=== PATIENT | female | born 1980 | race Two or more races ===

== ENCOUNTER 2021-02-14 17:45 | Outpatient (CLI) | payer OTHER | END 2021-02-14 17:49 | disposition home or self-care (01) | LOC: LAB 17:45 | PROVIDERS: ATTEND Radiology Diagnostic Radiology | DX: R10.84 Generalized abdominal pain (principal) ==

== ENCOUNTER 2021-02-15 07:45 | Outpatient (CLI) | payer OTHER | END 2021-02-15 07:54 | disposition home or self-care (01) | LOC: MRI 07:45 | DX: R10.84 Generalized abdominal pain (principal) | CPT/HCPCS: 72196; 74182 ==

== ENCOUNTER 2021-05-17 14:03 | Outpatient (CLI) | payer OTHER | END 2021-05-17 14:59 | disposition home or self-care (01) | LOC: TOM 14:03 | PROVIDERS: ATTEND Surgery | DX: K43.2 Incisional hernia without obstruction or gangrene (principal) ==

== ENCOUNTER 2022-01-17 07:30 | Inpatient (IN) | payer OTHER ==
[~2022-01-17 07:30] MED LIST: LIPOFEN150 MG PO; SYNTHROID150 MCG PO
[2022-01-20] MEDS ORDERED: POLY119PG PO (12:38)
[2022-01-20] MEDS ORDERED: PERCOCET 5-3251 EACH PO (12:38)
[2022-01-20] MEDS ORDERED: NEURONTIN600 M1 PO (12:38)
== END 2022-01-20 13:41 | disposition home or self-care (01) | DRG 337 ==
LOC: CIR.AMB 07:30 → SURH 21:48 → O/R 22:03 → SURG 22:16 → OB/GYN 22:45 → SURH 01-18 01:08
PROVIDERS: ADMIT Surgery; ATTEND Surgery
PROC: 0WUF0JZ Supplement Abdominal Wall with Synthetic Substitute, Open Approach (ICD-10-PCS; 2022-01-17)
PROC: 0DN80ZZ Release Small Intestine, Open Approach (ICD-10-PCS; 2022-01-17)
PROC: 0DNL0ZZ Release Transverse Colon, Open Approach (ICD-10-PCS; principal; 2022-01-17 16:45)
DX: K43.0 Incisional hernia with obstruction, without gangrene (principal); N73.6 Female pelvic peritoneal adhesions (postinfective); N99.4 Postprocedural pelvic peritoneal adhesions

== ENCOUNTER 2022-02-13 15:00 | Emergency (ER) | payer OTHER ==
[~2022-02-13] VITALS: Ht 154.9 cm; Wt 59.0 kg
[~2022-02-13 15:00] MED LIST changes: +NEURONTIN600 M1 PO; +PERCOCET 5-3251 EACH PO; +POLY119PG PO
== END 2022-02-13 18:12 | disposition home or self-care (01) ==
LOC: ER 15:00
DX: T81.31XA Disruption of external operation (surgical) wound, not elsewhere classified, initial encounter (principal)

== ENCOUNTER 2022-07-11 07:15 | Outpatient (CLI) | payer OTHER | END 2022-07-11 07:22 | disposition home or self-care (01) | LOC: TOM 07:15 | PROVIDERS: ATTEND Surgery | DX: K43.2 Incisional hernia without obstruction or gangrene (principal) ==

== ENCOUNTER 2023-02-12 10:25 | Inpatient (IN) | payer OTHER ==
[~2023-02-12] VITALS: Ht 152.4 cm; Wt 59.0 kg
[2023-02-25] MEDS ORDERED: CEPHALEXIN500 M1 PO (18:33)
[2023-02-25] MEDS ORDERED: LEVOFLOXACIN750 MG PO (18:33)
== END 2023-02-25 18:59 | disposition home or self-care (01) | DRG 570 ==
LOC: ER 10:25 → MEDJ 17:37
PROVIDERS: Specialist; ADMIT Internal Medicine; ATTEND Internal Medicine
PROC: BN25YZZ Computerized Tomography (CT Scan) of Facial Bones using Other Contrast (ICD-10-PCS; 2023-02-12)
PROC: 0JB10ZZ Excision of Face Subcutaneous Tissue and Fascia, Open Approach (ICD-10-PCS; principal; 2023-02-14 18:15)
PROC: BW21YZZ Computerized Tomography (CT Scan) of Abdomen and Pelvis using Other Contrast (ICD-10-PCS; 2023-02-17)
PROC: 0H91XZZ Drainage of Face Skin, External Approach (ICD-10-PCS; 2023-02-20)
PROC: BW24ZZZ Computerized Tomography (CT Scan) of Chest and Abdomen (ICD-10-PCS; 2023-02-20)
PROC: B24BZZZ Ultrasonography of Heart with Aorta (ICD-10-PCS; 2023-02-21)
PROC: CF241ZZ Tomographic (Tomo) Nuclear Medicine Imaging of Gallbladder using Technetium 99m (Tc-99m) (ICD-10-PCS; 2023-02-21)
DX: L03.211 Cellulitis of face (principal); J18.9 Pneumonia, unspecified organism; J90 Pleural effusion, not elsewhere classified; L02.01 Cutaneous abscess of face; N17.9 Acute kidney failure, unspecified; D64.9 Anemia, unspecified; E87.6 Hypokalemia; B95.61 Methicillin susceptible Staphylococcus aureus infection as the cause of diseases classified elsewhere; E03.9 Hypothyroidism, unspecified; R09.02 Hypoxemia; Z20.822 Contact with and (suspected) exposure to COVID-19

== ENCOUNTER 2023-08-05 09:15 | Outpatient (CLI) | payer OTHER ==
[~2023-08-05 09:15] MED LIST changes: +CEPHALEXIN500 M1 PO; +LEVOFLOXACIN750 MG PO
== END 2023-08-05 14:26 | disposition home or self-care (01) ==
LOC: TOM 09:15
DX: R06.00 Dyspnea, unspecified (principal); J44.9 Chronic obstructive pulmonary disease, unspecified; F17.200 Nicotine dependence, unspecified, uncomplicated; J98.4 Other disorders of lung

== ENCOUNTER 2023-11-30 09:52 | Emergency (ER) | payer OTHER ==
[~2023-11-30] VITALS: Ht 160 cm; Wt 54.4 kg
[2023-11-30 11:50] LABS: HEMATOCRIT 38.7 % (36.0-45.00); MEAN CELL VOLUME 86.7 fL (80.00-100.00); MEAN CORPUSCULAR HEMOGLOBIN 29.1 pg (27.00-32.0); MEAN CORPUSCULAR HGB CONC 33.6 g/dl (32.0-36.0); PLATELET COUNT 299 K/uL (150-450); RED BLOOD COUNT 4.46 M/uL (4.00-6.00); RED CELL DISTRIBUTION WIDTH 15.1 % (11.5-14.5)
[2023-11-30 12:14] LABS: CALCIUM 9.6 mg/dL (8.5-10.1); CREATININE SERUM 0.52 mg/dL (0.55-1.02); GFR 129.32; POTASSIUM 4.03 mEq/L (3.5-5.1)
[2023-11-30 12:36] LABS: URINE APPEARANCE Cloudy; URINE BILIRRUBIN Negative (NEGATIVE); URINE COLOR Yellow; URINE GLUCOSE Negative (NEGATIVE); URINE LEUKOCYTE Small; URINE NITRATE Negative; URINE PROTEIN Negative (NEGATIVE); URINE UROBILINOGEN 0.2 E.U./dl
[2023-11-30 12:40] LABS: URINE BACTERIA 1988.1 uL (0.0-1933); URINE EPITHELIAL CELLS 110.8 uL (0.0-38.8); URINE RBC 9.4 uL (0.0-20.8); URINE WBC 56.4 uL (0.0-23.2)
[2023-11-30 12:43] LABS: URINE BLOOD Trace
== END 2023-11-30 15:02 | disposition home or self-care (01) ==
LOC: ER 09:53
PROVIDERS: General Practice
DX: N39.0 Urinary tract infection, site not specified (principal); R10.9 Unspecified abdominal pain; M54.9 Dorsalgia, unspecified

== ENCOUNTER 2023-12-10 11:01 | Emergency (ER) | payer OTHER ==
[~2023-12-10] VITALS: Ht 160 cm; Wt 54.4 kg
[2023-12-10] MEDS ORDERED: RINGERS SOLUTION,LACTATED 1,000 ML IV STA (11:31)
[2023-12-10] MEDS ORDERED: MEPERIDINE HCL/PF 50 MG/ML VIAL IM STA (11:32)
[2023-12-10] MEDS ORDERED: PROMETHAZINE HCL 25 MG/ML AMPUL IM STA (11:32)
[2023-12-10 12:06] LABS: HEMATOCRIT 40.1 % (36.0-45.00); HEMOGLOBIN 13.2 g/dL (12.0-15.00); MEAN CELL VOLUME 85.2 fL (80.00-100.00); MEAN CORPUSCULAR HGB CONC 32.9 g/dl (32.0-36.0); PLATELET COUNT 285 K/uL (150-450); RED BLOOD COUNT 4.71 M/uL (4.00-6.00); RED CELL DISTRIBUTION WIDTH 15.2 % (11.5-14.5)
[2023-12-10 12:57] LABS: ALBUMIN 3.9 gm/dL (3.4-5.0); ALKALINE PHOSPHATASE 60 U/L (50-136); ALT/SGPT 22 U/L (12-78); AMYLASE 50 U/L (25-115); ANION GAP 6 (10.0-20.0); AST/SGOT 22 U/L (15-37); BILIRUBIN TOTAL 0.35 mg/dL (0.3-1.2); BILIRUBIN,CONJUGATED < 0.10 mg/dL (0.0-0.2); BILIRUBIN,UNCONJUGATED 0.25 mg/dL (0.0-0.6); BLOOD UREA NITROGEN 9 mg/dL (7-18); BUN CREA RATIO 14 (7.0-25.0); CALCIUM 9.2 mg/dL (8.5-10.1); CARBON DIOXIDE 30 mEq/L (21-32); CHLORIDE 108 mmol/L (98-107); CREATININE SERUM 0.63 mg/dL (0.55-1.02); GFR 103.63; GLUCOSE FASTING 82 mg/dL (65-100); OSMOLALITY SERUM 275 MOSM/KG (275-295); SODIUM 139 mmol/L (136-145)
[2023-12-10 12:58] LABS: POTASSIUM 4.56 mEq/L (3.5-5.1)
[2023-12-10 13:28] LABS: PH,URINE 6.5 (5.0-8.0); URINE APPEARANCE Clear; URINE BILIRRUBIN Negative (NEGATIVE); URINE BLOOD Small; URINE COLOR Yellow; URINE GLUCOSE Negative (NEGATIVE); URINE LEUKOCYTE Negative; URINE NITRATE Negative; URINE PROTEIN Negative (NEGATIVE); URINE UROBILINOGEN 0.2 E.U./dl
[2023-12-10 13:31] LABS: URINE BACTERIA 129.7 uL (0.0-1933); URINE EPITHELIAL CELLS 20.4 uL (0.0-38.8); URINE RBC 17.9 uL (0.0-20.8); URINE WBC 4.6 uL (0.0-23.2)
== END 2023-12-10 15:13 | disposition home or self-care (01) ==
LOC: ER 11:01
PROVIDERS: General Practice
DX: R10.9 Unspecified abdominal pain (principal); E03.9 Hypothyroidism, unspecified; Z20.822 Contact with and (suspected) exposure to COVID-19

== ENCOUNTER → 2023-12-20 | Emergency (ER) | payer OTHER ==
[~2023-12-20] VITALS: Ht 160 cm; Wt 56.7 kg
[~2023-12-20] MED LIST changes: +CEFTRIAXONE SODIUM 1,000 MG VIAL IM STA; +KETOROLAC TROMETHAMINE 30 MG VIAL IM STA
== END | disposition home or self-care (01) ==
LOC: ER 11:30
DX: L02.31 Cutaneous abscess of buttock (principal); L03.317 Cellulitis of buttock

== ENCOUNTER 2024-07-24 10:04 | Emergency (ER) | payer OTHER ==
[~2024-07-24] VITALS: Ht 167.6 cm; Wt 54.4 kg
[~2024-07-24 10:04] MED LIST changes: -CEFTRIAXONE SODIUM 1,000 MG VIAL IM STA; -KETOROLAC TROMETHAMINE 30 MG VIAL IM STA
[2024-07-24] MEDS ORDERED: SYNTHROID137 MCG PO (10:11)
[2024-07-24] MEDS ORDERED: hydrOXYzine PAMOATE 50 MG CAPSULE PO STA (11:26)
[2024-07-27] MEDS ORDERED: BUTALB-ACETAMI1 EACH PO (17:43)
== END 2024-07-24 11:41 | disposition home or self-care (01) ==
LOC: ER
DX: F41.9 Anxiety disorder, unspecified (principal); E03.9 Hypothyroidism, unspecified

== ENCOUNTER 2024-08-28 06:55 | Outpatient (CLI) | payer OTHER ==
[~2024-08-28 06:55] MED LIST changes: +BUTALB-ACETAMI1 EACH PO; +SYNTHROID137 MCG PO
== END 2024-08-28 07:15 | disposition home or self-care (01) ==
LOC: MRI 06:55
DX: G43.909 Migraine, unspecified, not intractable, without status migrainosus (principal); R51.9 Headache, unspecified; R47.9 Unspecified speech disturbances
CPT/HCPCS: 70551

== ENCOUNTER 2025-07-30 11:01 | Emergency (ER) | payer OTHER ==
[~2025-07-30] VITALS: Ht 160 cm; Wt 59.0 kg
[2025-07-30] MEDS ORDERED: ONDANSETRON HCL 2 MG/ML VIAL IV STA (12:29)
[2025-07-30] MEDS ORDERED: KETOROLAC TROMETHAMINE 30 MG VIAL IM STA (12:29)
[2025-07-30] MEDS ORDERED: FAMOTIDINE/PF 20 MG/2 ML VIAL IV STA (12:29)
[2025-07-30] MEDS ORDERED: ONDANSETRON HCL 2 MG/ML VIAL ONE (12:45)
[2025-07-30] MEDS ORDERED: FAMOTIDINE/PF 20 MG/2 ML VIAL ONE (12:45)
[2025-07-30] MEDS ORDERED: KETOROLAC TROMETHAMINE 30 MG VIAL ONE (12:45)
[2025-07-30 12:51] LABS: BASO % 1.1 % (0.1-1.2); EOS # 0.17 (0.04-0.54); EOS % 3.2 % (0.7-7.0); LYMPH # 2.08 (1.18-3.74); LYMPH % 38.6 % (19.3-53.1); MEAN PLATELET VOLUME 9.20 fl (9.4-12.4); MONO # 0.51 (0.24-0.82); MONO % 9.5 % (4.7-12.5); NEUT # 2.55 (1.56-6.13); NEUT % 47.2 % (34.0-71.1); RED CELL DISTRIBUTION WIDTH 17.4 % (11.6-14.4)
[2025-07-30 14:07] LABS: ALT/SGPT 19.0 U/L (12-78); AST/SGOT 22.0 U/L (15-37); BILIRUBIN TOTAL 0.56 mg/dL (0.3-1.2); BUN CREA RATIO 10.0 (7.0-25.0); CREATININE SERUM 0.73 mg/dL (0.55-1.02); GFR 86.61; GLOBULINA 4.4 G/DL (2.4-3.5); GLUCOSE FASTING 82.0 mg/dL (65-100); OSMOLALITY SERUM 276.0 MOSM/KG (275-295)
[2025-07-30] MEDS ORDERED: ZANAFLEX4 M1 PO (16:13)
[2025-07-30] MEDS ORDERED: IBU800 MG PO (16:13)
== END 2025-07-30 16:29 | disposition home or self-care (01) ==
LOC: ER 11:01
PROVIDERS: General Practice
DX: M94.0 Chondrocostal junction syndrome [Tietze] (principal); R10.9 Unspecified abdominal pain; Z85.41 Personal history of malignant neoplasm of cervix uteri; D64.89 Other specified anemias